=== PATIENT | female | born 1990 | race American Indian/Alaskan Native ===

== ENCOUNTER 2018-04-10 12:11 | Emergency (ER) | payer OTHER ==
[2018-04-10 12:35] VITALS: BP 111/55
--- NOTE | 2018-04-10 12:44 | Emergency Department Report ---
Chief Complaint: Pain General Stated Complaint: RIGHT KNEE PAIN Time Seen by Provider: 04/10/18 12:42 - HPI History of Present Illness: 27-year-old female presents to the emergency department with right knee pain for the past 2 days since she was doing a long jump at a track. She felt a pop at that time. She says that she feels like it popped back into place and her pain has improved but she does have some restriction to bending the knee/ flexion. She also has some swelling around the knee joint. She is able to ambulate but it is difficult to do. She did not take anything for her symptoms prior to presentation. - ROS Review of Systems: Positive for right knee pain and swelling Negative for erythema, rash - Exam Vital Signs: Vital Signs 04/10/18 12:30 Temperature 98.9 F Pulse Rate 68 Respiratory 18 Rate Blood Pressure 111/55 Physical Exam: She has no laxity to valgus or varus stress of the right knee. Negative anterior and posterior drawer test of the right knee. It does appear swollen to the anterior knee. MSE screening note: Focused history and physical exam performed. Due to findings the following was ordered: She will have a right knee x-ray done. She will most likely need a knee immobilizer plus or minus crutches and referral to an orthopedist. ED Disposition for MSE Condition: Stable
--- NOTE | 2018-04-10 14:20 | XRay Report ---
FINAL REPORT EXAM: XR KNEE 3V RT HISTORY: right knee pain TECHNIQUE: AP and lateral radiographs of the right knee. PRIORS: None. FINDINGS: No fracture. No dislocation. Normal mineralization. No soft tissue abnormality. There is a right knee joint effusion. No degenerative change. IMPRESSION: Right knee joint effusion. No acute osseous abnormality.
--- NOTE | 2018-04-10 14:39 | Emergency Department Report ---
HPI - General Chief Complaint: Pain General Time Seen by Provider: 04/10/18 12:42 - HPI HPI: 27-year-old female presents to the emergency department with right knee pain for the past 2 days since she was doing a long jump at a track. She felt a pop at that time. She says that she feels like it popped back into place and her pain has improved but she does have some restriction to bending the knee/ flexion. She also has some swelling around the knee joint. She is able to ambulate but it is difficult to do. She did not take anything for her symptoms prior to presentation. ED Past Medical Hx - Past Medical History Previous Medical History?: No - Surgical History Past Surgical History?: No - Social History Smoking Status: Never Smoker - Medications Home Medications: Home Medications Medication Instructions Recorded Confirmed Last Taken Type HYDROcodone/ACETAMINOPHEN [Center 1 each PO Q8H PRN #10 tablet 04/10/18 Unknown Rx 5-325 Tablet] ED Review of Systems ROS: Stated complaint: RIGHT KNEE PAIN Other details as noted in HPI Comment: All other systems reviewed and negative Constitutional: denies: chills, fever Eyes: denies: eye pain, eye discharge, vision change ENT: denies: ear pain, throat pain Respiratory: denies: cough, shortness of breath, wheezing Cardiovascular: denies: chest pain, palpitations Gastrointestinal: denies: abdominal pain, nausea, diarrhea Genitourinary: denies: urgency, dysuria, discharge Musculoskeletal: joint swelling, arthralgia Skin: denies: rash, lesions Neurological: denies: headache, weakness, paresthesias Physical Exam - Physical Exam Vital Signs: Vital Signs 04/10/18 12:30 Temperature 98.9 F Pulse Rate 68 Respiratory 18 Rate Blood Pressure 111/55 Physical Exam: GENERAL: The patient is well-developed well-nourished. HENT: Normocephalic. Atraumatic. Patient has moist mucous membranes. EYES: Extraocular motions are intact. NECK: Supple. Trachea is midline. CHEST/LUNGS: Clear to auscultation. There is no respiratory distress noted. HEART/CARDIOVASCULAR: Regular. There is no tachycardia. There is no murmur. ABDOMEN: There is no abdominal distention. SKIN: There is some nonpitting swelling to the anterior right knee. NEURO: The patient is awake, alert, and oriented. The patient is cooperative. The patient has no focal neurologic deficits. The patient has normal speech. MUSCULOSKELETAL: There is some tenderness palpation to the anterior right knee. Negative anterior and posterior drawer test. No laxity with valgus or varus stress. Decreased range of motion of the right knee secondary to pain and the patient appears to have some restriction to full flexion. Distal pulses intact. ED Course Vital Signs 04/10/18 12:30 Temperature 98.9 F Pulse Rate 68 Respiratory 18 Rate Blood Pressure 111/55 ED Medical Decision Making - Radiology Data Radiology results: image reviewed interpreted by me: X-ray of the right knee does not show any fracture, dislocation but there appears to be a joint effusion. - Medical Decision Making Patient has right knee pain for the past 2 days after she was doing the long jump and felt a pop followed by swelling. Negative anterior and posterior drawer test. No laxity with valgus or varus stress. X-ray does not show any fracture or dislocation. It is possible patient could have injured a ligament, tendon or her meniscus. She was placed in a knee immobilizer and given crutches to be nonweightbearing. She was given multiple referrals for orthopedists. She was given a small amount of pain medication for home. She will use rest, elevation, compression and ice as needed. She will return to the ER with any worsening of her symptoms or any acute distress. Critical care attestation.: If time is entered above; I have spent that time in minutes in the direct care of this critically ill patient, excluding procedure time. ED Disposition Clinical Impression: Knee effusion, right Right knee pain Qualifiers: Chronicity: acute Qualified Code(s): M25.561 - Pain in right knee Right knee sprain Qualifiers: Encounter type: initial encounter Involved ligament of knee: unspecified ligament Qualified Code(s): S83.91XA - Sprain of unspecified site of right knee , initial encounter Disposition: TO HOME OR SELFCARE Is pt being admited?: No Condition: Stable Instructions: Knee Effusion (ED), Knee Pain (ED), Knee Immobilizer (ED) Additional Instructions: Please follow up with a orthopedist in the next few days. Return to the emergency Department with any worsening of your symptoms or any acute distress. You have been prescribed a medication that is sedating and therefore should not be taken prior to driving, working, and responsible for children and in no way should be mixed with alcohol of any quantity. Prescriptions: HYDROcodone/ACETAMINOPHEN [Center 5-325 Tablet] 1 each PO Q8H PRN #10 tablet PRN Reason: Pain Referrals: ANA AMBROSIO MD [Staff Physician] - 3-5 Days [facility] [email or web address] [Provider Group] - 3-5 Days Time of Disposition: 14:39
== END 2018-04-10 15:00 | disposition home or self-care (01) ==
LOC: ED 12:11
DX: S83.91XA Sprain of unspecified site of right knee, initial encounter (principal); M25.461 Effusion, right knee; X58.XXXA Exposure to other specified factors, initial encounter; Y93.39 Activity, other involving climbing, rappelling and jumping off; Y99.8 Other external cause status; Y92.89 Other specified places as the place of occurrence of the external cause